=== PATIENT | female | born 1980 | race Caucasian/White ===

== ENCOUNTER 2016-12-07 12:39 | Emergency (ER) | payer BC | END 2016-12-07 13:00 | disposition home or self-care (01) | LOC: ER 12:39 | DX: M25.571 Pain in right ankle and joints of right foot (principal); X50.0XXA Overexertion from strenuous movement or load, initial encounter; W10.9XXA Fall (on) (from) unspecified stairs and steps, initial encounter; F17.210 Nicotine dependence, cigarettes, uncomplicated; Z79.899 Other long term (current) drug therapy; Z88.0 Allergy status to penicillin; Z88.1 Allergy status to other antibiotic agents | CPT/HCPCS: 73590; 73630; 99070; 99283 ==

== ENCOUNTER 2016-12-20 16:50 | Emergency (ER) | payer BC ==
[2016-12-20 17:43] LABS: BASO % 0.3 % (0.1-1.2); EOS # 0.3 10_X3_uL (0.0-0.4); EOS % 2.2 % (0.7-5.8); GRAN # 6.2 10_X3_uL (1.6-6.1); GRAN % 52.3 % (34.0-71.1); HEMATOCRIT 40.2 % (34-45); HEMOGLOBIN 13.3 g/dL (11.2-15.7); LYMPH % 41.7 % (19.3-51.7); MEAN CORPUSCULAR HEMOGLOBIN 27.4 pg (27.0-33.0); MEAN CORPUSCULAR HGB CONC 33.1 g/dL (32.0-36.0); MEAN CORPUSCULAR VOLUME 82.7 fL (79-95); MEAN PLATELET VOLUME 12.2 fl (7.5-11.5); MONO # 0.4 10_X3_uL (0.2-0.9); MONO % 3.5 % (4.7-12.5); PLATELET COUNT 273 x10_3/uL (182-369); RED BLOOD COUNT 4.86 x10_6/uL (3.9-5.2); RED CELL DISTRIBUTION WIDTH 15.3 % (11.7-14.4); WHITE BLOOD COUNT 11.9 x10_3/uL (4.0-10.0)
[2016-12-20 18:01] LABS: ALBUMIN 3.8 gm/dL (3.4-5.0); ALKALINE PHOSPHATASE 149 U/L (50-136); ALT/SGPT 28 U/L (3.5-33.9); AST/SGOT 34 U/L (7.04-26.96); BLOOD UREA NITROGEN 5 mg/dL (7-18); CALCIUM 8.6 mg/dL (8.7-10.7); CARBON DIOXIDE 25 mmol/L (21-32); CREATININE 0.6 mg/dL (0.6-1.3); MAGNESIUM 1.9 mg/dL (1.8-2.4); POTASSIUM 4.4 mmol/L (3.5-5.1); SODIUM 131 mmol/L (136-145); TOTAL PROTEIN 6.8 gm/dL (6.4-8.2)
[2016-12-20 18:12] LABS: GLUCOSE,RANDOM 532 mg/dL (70-99)
== END 2016-12-21 03:12 | disposition short-term general hospital (02) ==
LOC: ER 16:50
PROVIDERS: Emergency Medicine
DX: K56.60 Unspecified intestinal obstruction (principal); G40.89 Other seizures; Z90.410 Acquired total absence of pancreas; Z90.710 Acquired absence of both cervix and uterus; Z98.890 Other specified postprocedural states; R11.2 Nausea with vomiting, unspecified; E11.9 Type 2 diabetes mellitus without complications; Z88.0 Allergy status to penicillin; Z88.1 Allergy status to other antibiotic agents; Z79.4 Long term (current) use of insulin
CPT/HCPCS: 36415; 80053; 82009; 82962; 83735; 84100; 85025; 96361; 96374; 96375; 99285-25; J1170

== ENCOUNTER 2016-12-21 05:09 | Emergency (ER) | payer BC ==
[2016-12-21 08:19] LABS: BASO # 0.1 10_X3_uL (0.0-0.1); BASO % 0.5 % (0.1-1.2); EOS # 0.5 10_X3_uL (0.0-0.4); EOS % 3.4 % (0.7-5.8); GRAN # 5.3 10_X3_uL (1.6-6.1); GRAN % 39.1 % (34.0-71.1); HEMATOCRIT 36.8 % (34-45); HEMOGLOBIN 11.9 g/dL (11.2-15.7); LYMPH # 6.5 10_X3_uL (1.2-3.7); LYMPH % 47.8 % (19.3-51.7); MEAN CORPUSCULAR HEMOGLOBIN 27.4 pg (27.0-33.0); MEAN CORPUSCULAR HGB CONC 32.3 g/dL (32.0-36.0); MEAN CORPUSCULAR VOLUME 84.8 fL (79-95); MEAN PLATELET VOLUME 11.9 fl (7.5-11.5); MONO # 1.3 10_X3_uL (0.2-0.9); MONO % 9.2 % (4.7-12.5); PLATELET COUNT 247 x10_3/uL (182-369); RED BLOOD COUNT 4.34 x10_6/uL (3.9-5.2); RED CELL DISTRIBUTION WIDTH 15.4 % (11.7-14.4); WHITE BLOOD COUNT 13.7 x10_3/uL (4.0-10.0)
[2016-12-21 08:36] LABS: ALBUMIN 3.3 gm/dL (3.4-5.0); ALKALINE PHOSPHATASE 130 U/L (50-136); ALT/SGPT 26 U/L (3.5-33.9); AST/SGOT 34 U/L (7.04-26.96); BILIRUBIN,TOTAL 0.24 mg/dL (0.0-1.0); BLOOD UREA NITROGEN 5 mg/dL (7-18); CALCIUM 8.1 mg/dL (8.7-10.7); CARBON DIOXIDE 30 mmol/L (21-32); CREATININE 0.6 mg/dL (0.6-1.3); GLUCOSE,RANDOM 177 mg/dL (70-99); POTASSIUM 4.3 mmol/L (3.5-5.1); SODIUM 138 mmol/L (136-145); TOTAL PROTEIN 6.1 gm/dL (6.4-8.2)
== END 2016-12-21 09:45 | disposition home or self-care (01) ==
LOC: ER 05:09
PROVIDERS: Emergency Medicine
DX: F44.5 Conversion disorder with seizures or convulsions (principal); K83.8 Other specified diseases of biliary tract; I88.0 Nonspecific mesenteric lymphadenitis; E11.9 Type 2 diabetes mellitus without complications; Z90.710 Acquired absence of both cervix and uterus; Z90.410 Acquired total absence of pancreas; Z88.0 Allergy status to penicillin; Z88.1 Allergy status to other antibiotic agents
CPT/HCPCS: 36415; 80053; 85025; 96361; 96374; 99070; 99284-25

== ENCOUNTER 2017-01-04 23:02 | Emergency (ER) | payer BC | END 2017-01-05 00:35 | disposition home or self-care (01) | LOC: ER 23:02 | DX: K76.0 Fatty (change of) liver, not elsewhere classified (principal); R10.9 Unspecified abdominal pain; E66.01 Morbid (severe) obesity due to excess calories; G40.909 Epilepsy, unspecified, not intractable, without status epilepticus; E11.9 Type 2 diabetes mellitus without complications; Z87.442 Personal history of urinary calculi; Z79.899 Other long term (current) drug therapy; Z79.4 Long term (current) use of insulin; Z88.0 Allergy status to penicillin; Z88.1 Allergy status to other antibiotic agents | CPT/HCPCS: 96372; 99284-25; J1170 ==